=== PATIENT | female | born 1985 | race Caucasian/White ===

== ENCOUNTER 2017-04-18 18:55 | Emergency (ER) | payer OTHER ==
[~2017-04-18] VITALS: Ht 175.3 cm; Wt 101.0 kg
[~2017-04-18 18:55] MED LIST: ALBUTEROL SULF8.5 GM IH; BLEPH-105 ML BOTH EYES; CIPROFLOXACIN500 M1 PO; CLONAZEPAM2 MG PO; FAMOTIDINE20 MG PO; FLEXERIL10 MG PO; KLONOPIN2 MG PO; MOTRIN IB200 MG PO; NAPROXEN500 MG PO; NOHOMEMEDS; PERCOCET 10/1 TABLET PO; PERCOCET 5/31 TABLET PO; SPRINTEC1 EACH; TRAMADOL HCL50 MG PO
[2017-04-18 20:24] LABS: HEMATOCRIT 38.7 % (36.0-46.0); HEMOGLOBIN 13.1 G/DL (11.9-15.5); MCH 30.8 PG (29.0-34.0); MCHC 33.9 G/DL (30.0-36.0); MCV 91.1 FL (83-99); PLATELET COUNT 273 K/uL (156-360); RBC DIS.WIDTH-CV 11.9 % (11.8-14.6); RBC DIS.WIDTH-SD 39.7 % (39-53); RED BLOOD COUNT 4.25 M/uL (3.80-5.20); WHITE BLOOD COUNT 8.2 K/uL (4.1-10.2)
[2017-04-18 20:33] LABS: ALBUMIN 4.6 g/dL (3.2-4.8); CHLORIDE 106 mEq/L (99-109); POTASSIUM 3.6 mEq/L (3.7-5.4); SODIUM 139 mEq/L (136-147)
[2017-04-18 20:33] LABS: APPEARANCE SL.HAZY ((CLEAR)); BILIRUBIN NEGATIVE; BLOOD NEGATIVE; COLOR YELLOW ((YELLOW)); GLUCOSE (STRIP) NEGATIVE; KETONES NEGATIVE; LEUKOCYTES NEGATIVE; NITRITE POSITIVE; PROTEIN (STRIP) 30; SPECIFIC GRAVITY 1.027 (1.000-1.030); UROBILINOGEN 0.2 MG/DL (0.2-1.0)
[2017-04-18 20:35] LABS: GLUCOSE 97 mg/dL (70-99); TOTAL PROTEIN 7.8 g/dL (6.4-8.3)
[2017-04-18 20:37] LABS: TOTAL BILIRUBIN 0.2 mg/dL (0.0-1.0)
[2017-04-18 20:39] LABS: ALKALINE PHOSPHATASE 78 IU/L (3-129); CREATININE 0.7 mg/dL (0.6-1.3); GFR ESTIMATE (CALCULATED) > 59 mL/min/
[2017-04-18 20:40] LABS: UREA NITROGEN (BUN) 14 mg/dL (9-23)
[2017-04-18 20:41] LABS: AST (GOT) 15 IU/L (2-34)
[2017-04-18 20:42] LABS: ALT (GPT) 15 IU/L (3-49)
[2017-04-18 20:52] LABS: BACTERIA 3+ /HPF; EPITHELIAL CELLS 1+ /HPF; MUCUS 1+ /LPF; UCUL ADDED? YES; WHITE BLOOD CELLS 0-5 /HPF (0-5)
[2017-04-18 21:11] LABS: QUANTITATIVE HCG 34996.4 MIU/ML
[2017-04-18] MEDS ORDERED: MACROBID100 MG PO (22:55)
[2017-04-18] MEDS ORDERED: CORTIZONE-10 PL57 GM TP (23:00)
[2017-04-18 23:04] VITALS: BP 148/83
== END 2017-04-18 23:09 | disposition home or self-care (01) ==
LOC: EME 18:55
DX: O26.891 Other specified pregnancy related conditions, first trimester (principal); R21 Rash and other nonspecific skin eruption; O23.41 Unspecified infection of urinary tract in pregnancy, first trimester; Z3A.01 Less than 8 weeks gestation of pregnancy
CPT/HCPCS: 80053; 81003; 84702; 85027; 87077; 87086; 87186; 87651 90; 99281; 99284